=== PATIENT | male | born 1945 | race Asian ===

== ENCOUNTER 2020-09-15 21:41 | Emergency (ER) | payer OTHER ==
[~2020-09-15] VITALS: Ht 167.6 cm; Wt 77.7 kg
[~2020-09-15 21:41] MED LIST: FERR-89 PO
[2020-09-15] MEDS ORDERED: LOSA25TA21 PO (21:56)
[2020-09-15] MEDS ORDERED: ACETAMINOPHEN 500 MG TABLET PO ONE (22:45)
[2020-09-15] MEDS ORDERED: LIDOCAINE 5% TRANSDERMAL PATCH TD ONE (22:45)
[2020-09-15] MEDS ORDERED: IBUPROFEN 600 MG TABLET PO ONE (22:45)
[2020-09-15 23:00] VITALS: BP 132/78
== END 2020-09-15 23:10 | disposition home or self-care (01) ==
LOC: EMS 21:45
DX: S16.1XXA Strain of muscle, fascia and tendon at neck level, initial encounter (principal); I10 Essential (primary) hypertension; X58.XXXA Exposure to other specified factors, initial encounter; Y93.89 Activity, other specified; Y92.89 Other specified places as the place of occurrence of the external cause; Y99.8 Other external cause status
CPT/HCPCS: 99284; Z7502; Z7610